=== PATIENT | female | born 1975 ===

== ENCOUNTER → 2021-10-05 | Day surgery (SDC) | payer OTHER ==
[~2021-10-05] VITALS: Ht 157.5 cm; Wt 77.1 kg
[~2021-10-05] MED LIST: KETOROLAC TROME10 MG PO
[2021-10-05 07:15] LABS: HCG (URINE) SCREEN NEGATIVE (NEGATIVE)
[2021-10-05 07:39] LABS: HCT 41.2 % (37.0-47.0); HGB 13.2 g/dl (12.5-16.0); MCH 26.2 pg (25.0-31.0); MCV 81.9 fL (78.0-100.0); MPV 10.1 fL (6.0-9.5); RBC 5.03 M/uL (4.20-5.40); RDW 14.5 % (11.5-14.0); WBC 12.3 K/uL (4.0-10.5)
== END | disposition home or self-care (01) ==
LOC: FAS 06:05
PROVIDERS: Specialist
DX: R87.613 High grade squamous intraepithelial lesion on cytologic smear of cervix (HGSIL) (principal); R87.810 Cervical high risk human papillomavirus (HPV) DNA test positive
CPT/HCPCS: 36415; 84703; J0690; J1100; J1170; J1885; J2250; J2405; J2704; J3010; J7120

== ENCOUNTER 2021-10-12 18:21 | Emergency (ER) | payer OTHER ==
[2021-10-12 20:27] LABS: BASOPHIL 0.5 % (0-2); EOSINOPHIL 2.4 % (0-5); HCT 37.9 % (37.0-47.0); HGB 12.3 g/dl (12.5-16.0); MCH 26.6 pg (25.0-31.0); MCHC 32.5 g/dL (32.0-36.0); MPV 10.2 fL (6.0-9.5); NEUTROPHIL 56.2 % (41-80); NRBC 0; PLT 320 K/uL (150-400); RBC 4.62 M/uL (4.20-5.40); RDW 14.2 % (11.5-14.0); WBC 13.2 K/uL (4.0-10.5)
[2021-10-12 20:28] LABS: BILIRUBIN NEGATIVE (NEGATIVE); BLOOD 3+ Ery/uL (NEGATIVE); CLARITY CLEAR (CLEAR); GLUCOSE (U) NORMAL (NORMAL); LEUKOCYTES 2+ Leu/uL (NEGATIVE); NITRITE NEGATIVE (NEGATIVE); PROTEIN NEGATIVE (NEGATIVE); UROBILINOGEN 0.2 mg/dL (0.2-1.0)
[2021-10-12 20:29] LABS: LYMPHOCYTE 33.4 % (15-48)
[2021-10-12 20:30] LABS: COLOR RED (YELLOW); SQUAMOUS EPITHELIAL CELLS RARE; URINARY RBC TNTC; URINARY WBC RARE
[2021-10-12 20:37] LABS: CREATININE 0.6 mg/dL (0.51-0.95)
== END 2021-10-12 22:26 | disposition home or self-care (01) ==
LOC: FER 18:21
PROVIDERS: Physician Assistant
DX: N99.820 Postprocedural hemorrhage of a genitourinary system organ or structure following a genitourinary system procedure (principal); Z98.890 Other specified postprocedural states
CPT/HCPCS: 36415; 80048; 81001; 85025; 99283